=== PATIENT | male | born 1970 | race Caucasian/White ===

== ENCOUNTER 2023-07-27 12:19 | Emergency (ER) | payer BC, OTHER ==
[2023-07-27 12:47] VITALS: RESP 20; TEMP 98.5; BMI 42.5
[2023-07-27 13:20] LABS: HEMATOCRIT 47.5 % (35.4-49); HEMOGLOBIN 15.4 G/dL (11.7-16.9); MCH 28.4 pg (25.7-33.7); MCHC 32.3 g/dl (32.0-35.9); MEAN CELL VOLUME 87.9 fl (80-96); MEAN PLT VOLUME 8.7 fl (7.5-11.1); PLATELET COUNT 196.2 10^3/uL (134-434); RDW 14.1 % (11.9-15.9); WHITE BLOOD COUNT 9.5 10^3/uL (4.0-10.8)
[2023-07-27 13:23] LABS: INR 1.09 (0.83-1.09); PROTHROMBIN TIME (PATIENT) 12.6 SEC (9.7-13.0)
[2023-07-27 13:31] LABS: ALBUMIN 4.3 g/dl (3.4-5.0); ALK PHOS 61 U/L (45-117); ANION GAP 10 mmol/L (4-13); BILIRUBIN,TOTAL 0.9 mg/dl (0.2-1); CALCIUM 9.3 mg/dl (8.5-10.1); CHLORIDE 105 mmol/L (98-107); CO2 23 mmol/L (21-32); CREATININE 0.7 mg/dl (0.6-1.3); GLUCOSE,RANDOM 84 mg/dl (74-106); SGOT/AST 27 U/L (15-37); SGPT/ALT 18 U/L (7-52); SODIUM 138 mmol/L (136-145); TOT PROT 6.7 g/dl (6.4-8.2)
[2023-07-27 13:33] LABS: POTASSIUM 4.8 mmol/L (3.5-5.1)
[2023-07-27] MEDS ORDERED: ASPIRIN 325 MG TABLET ONE (13:37)
[2023-07-27] MEDS: ASPIRIN 325 MG TABLET PO ONE (13:38)
[2023-07-27 15:46] VITALS: BP 105/60; PULSE 68
== END 2023-07-27 15:50 | disposition home or self-care (01) ==
LOC: FER 12:19
DX: R07.89 Other chest pain (principal)
CPT/HCPCS: 36415; 71045-TC-FY; 80053; 84484; 85027; 85610; 93005; 99285-25